=== PATIENT | male | born 1955 | race Caucasian/White ===

== ENCOUNTER 2017-10-05 10:15 | Outpatient (CLI) | payer BC ==
[~2017-10-05 10:15] MED LIST: Gadobenate Dimeglumine 529 MG/1 ML (20ML VIAL) ONE
--- NOTE | 2017-10-05 16:34 | MRI ---
MR OF THE ABDOMEN WITH AND WITHOUT CONTRAST: 10/05/17 INDICATION: Long history of cholecystectomy and hernia with right upper quadrant pain underlying the right ribs f or a year. COMPARISON: Prior MR of the abdomen dated 02/01/14. TECHNIQUE: Multiplanar and multisequence MR images were obtained in the abdomen with and without contrast utiliz ing 20 mL of Multihance. FINDINGS: The gallbladder is surgically absent. The common bile duct and main pancreatic duct are within normal limits. No definite intraluminal focal filling defect is evident. There are multiple small hepatic cysts. The largest within the medial left hepatic lobe is slightly i ntervally enlarged from the comparison exam now measuring up to 1.2 cm in size. There is interval enlargement of the right inferior pole renal cyst now measuring 4.6 cm where previo usly measured 3.2 cm. Small cyst involving the left mid kidney is stable. No free fluid or enlarged lymph nodes evident. The pancreas, spleen and adrenal glands are within normal limits. IMPRESSION: 1. Slight interval enlargement of the hepatic and right renal cysts. 2. No additional acute abnormality demonstrated. POS: RED
== END 2017-10-05 10:16 | disposition home or self-care (01) ==
LOC: SCSMRI 10:15
PROVIDERS: ATTEND Internal Medicine Gastroenterology
DX: K75.81 Nonalcoholic steatohepatitis (NASH) (principal); R10.11 Right upper quadrant pain; R16.0 Hepatomegaly, not elsewhere classified; N28.1 Cyst of kidney, acquired
CPT/HCPCS: 74183; 82565; A9579

== ENCOUNTER 2020-04-18 09:28 | Outpatient (CLI) | payer BC, OTHER ==
[2020-04-18 18:16] LABS: SARS-CoV-2 MS2 Positive; SARS-CoV-2 N Gene Negative; SARS-CoV-2 S Gene Negative; SARS-CoV-2 by NAA Not Detected (NotDetected); SARS-CoV-2 orf1ab Negative
== END 2020-04-18 09:29 | disposition home or self-care (01) ==
LOC: LABBT 09:28
PROVIDERS: ATTEND Ophthalmology Retina Specialist
DX: H43.391 Other vitreous opacities, right eye (principal); Z20.828 Contact with and (suspected) exposure to other viral communicable diseases
CPT/HCPCS: 87635; U0003

== ENCOUNTER 2020-04-22 05:54 | Day surgery (SDC) | payer BC ==
[2020-04-18 15:59] VITALS: BMI 28.7
[2020-04-22] MEDS ORDERED: Midazolam HCl 2 mg/2 ml Vial ONE (06:19)
[2020-04-22] MEDS ORDERED: Phenylephrine 2.5% Ophth Soln 5 ML BOT ONE (06:22)
[2020-04-22] MEDS ORDERED: Cyclopentolate 1% Opth Drop 2 ML BOT ONE (06:22)
[2020-04-22] MEDS ORDERED: EPINEPHrine 0.3 MG in Ophthalmic Irrigation Solution 500 ML IRR SCH (06:30)
--- NOTE | 2020-04-22 08:03 | OP ---
DATE OF PROCEDURE: 04/22/2020 PRINCIPAL PREOPERATIVE DIAGNOSIS: Vitreous opacities, right eye. POSTOPERATIVE DIAGNOSIS: Vitreous opacities, right eye. PROCEDURES PERFORMED: 1. 25-gauge pars plana vitrectomy, right eye. 2. Posterior capsular opacification clearing, right eye. ESTIMATED BLOOD LOSS: None. SPECIMENS REMOVED: None. COMPLICATIONS: None. ANESTHESIA: MAC with sub-Tenon's block. DESCRIPTION OF PROCEDURE: The patient was identified in the preoperative holding area, where the correct eye being the right eye was marked for surgery. The patient was taken to the operating room, where MAC anesthesia was induced. The right eye was prepped and draped in the usual sterile ophthalmic fashion for surgery. A wire-clip lid speculum was placed. An inferonasal conjunctival peritomy was fashioned with Remberto scissors for administration of sub-Tenon's block. The block consisted of 1:1 ratio of 4% lidocaine and 0.75% Marcaine. Total of 5 mL was administered. A standard 25-gauge pars plana vitrectomy platform was fashioned with trocars placed approximately 3.5 mm from the limbus. The infusion was noted to be within the vitreous cavity prior to being turned on to an infusion pressure of 30 mmHg. The light pipe and micro vitrector were introduced in the eye under visualization of BIOM viewing system. Significant amount of vitreous opacities identified. A careful core and peripheral shave vitrectomy were performed with the assistance of Kenalog and scleral depression. This allowed for significant improvement in the vitreous opacities identified. Following completion of vitrectomy, a 360-degree scleral depressed exam of the periphery was performed, which revealed no defects. The cannulas were sequentially removed and the superotemporal sclerotomy was sutured with 8-0 Vicryl suture. Following suturing, all sclerotomies were noted to be watertight. Subconjunctival Ancef and Kenalog were injected. The wire-clip lid speculum was removed followed by application of TobraDex ophthalmic ointment and a light patch and shield. The patient tolerated the procedure well and was taken to the outpatient recovery area in good condition. Job ID: [id number]
[2020-04-22] MEDS ORDERED: PROPOFOL 200 MG/20 ML VIAL ONE (09:46)
[2020-04-22] MEDS ORDERED: Maxitrol 0.1% Opth Oint 3.5 GM TUBE ONE (09:46)
[2020-04-22] MEDS ORDERED: Bupivacaine PF 0.75% SDV 10 ML ONE (09:46)
[2020-04-22] MEDS ORDERED: CEFAZOLIN 1 GM VIAL ONE (09:46)
[2020-04-22] MEDS ORDERED: Lidocaine 4% PF 5 ML AMP ONE (09:46)
[2020-04-22] MEDS ORDERED: Lidocaine 1% PF 5 ML VIAL ONE ×2 (09:46)
[2020-04-22] MEDS ORDERED: Triamcinolone 40 MG/ML VIAL ONE (09:46)
== END 2020-04-22 08:15 | disposition home or self-care (01) ==
LOC: SDC 05:54
PROVIDERS: ATTEND Ophthalmology Retina Specialist
PROC: 08943ZZ Drainage of Right Vitreous, Percutaneous Approach (ICD-10-PCS; principal; 2020-04-22)
DX: H43.391 Other vitreous opacities, right eye (principal); I10 Essential (primary) hypertension; E03.9 Hypothyroidism, unspecified; J45.909 Unspecified asthma, uncomplicated; M06.9 Rheumatoid arthritis, unspecified; Z79.899 Other long term (current) drug therapy; Z88.2 Allergy status to sulfonamides
CPT/HCPCS: J0171; J0690; J2001; J2250; J2704; J3301; J3490

== ENCOUNTER 2020-04-28 13:04 | Outpatient (CLI) | payer BC ==
--- NOTE | 2020-04-28 14:41 | RAD ---
CERVICAL SPINE: Date: 04/28/2020 Total of 8 views. Neutral, flexion, and extension views were obtained. INDICATION: Neck pain. Rheumatoid arthritis. FINDINGS: Cervical vertebra maintain height. There is loss of disc space at the C4-5 level. Slight posterolisth esis and posterior spondylosis at C4-5. Mild anterior spurring from the cervical vertebra. Evidence o f facet hypertrophy. Mild bilateral foraminal narrowing at C4-5. IMPRESSION: Evidence of moderate degenerative changes at C4-5 with disc narrowing, spondylosis, and uncinate hype rtrophy which produces foraminal stenosis. POS: AH
== END 2020-04-28 13:05 | disposition home or self-care (01) ==
LOC: SCSRAD 13:04
PROVIDERS: ATTEND Internal Medicine Rheumatology
DX: M54.2 Cervicalgia (principal); M47.812 Spondylosis without myelopathy or radiculopathy, cervical region; M48.02 Spinal stenosis, cervical region
CPT/HCPCS: 72052

== ENCOUNTER 2020-10-14 18:00 | Outpatient (CLI) | payer BC | END 2020-10-14 18:01 | disposition home or self-care (01) | LOC: SLEEPLAB 18:00 | PROVIDERS: ATTEND Family Medicine | DX: G47.33 Obstructive sleep apnea (adult) (pediatric) (principal); R53.83 Other fatigue; R06.83 Snoring; G47.00 Insomnia, unspecified; K21.9 Gastro-esophageal reflux disease without esophagitis; I49.9 Cardiac arrhythmia, unspecified; J45.909 Unspecified asthma, uncomplicated; I10 Essential (primary) hypertension; E66.9 Obesity, unspecified; Z68.29 Body mass index [BMI] 29.0-29.9, adult | CPT/HCPCS: 95806 ==

== ENCOUNTER 2022-05-24 09:45 | Outpatient (CLI) | payer BC | END 2022-05-24 09:46 | disposition home or self-care (01) | LOC: SCSRAD 09:45 | PROVIDERS: ATTEND Internal Medicine Rheumatology | DX: M25.551 Pain in right hip (principal); M54.6 Pain in thoracic spine | CPT/HCPCS: 72072 ==

== ENCOUNTER 2023-02-01 05:56 | Day surgery (SDC) | payer BC ==
[2023-01-31 12:07] VITALS: BMI 28.7
[~2023-02-01 05:56] MED LIST changes: +EPINEPHrine 0.3 MG in Ophthalmic Irrigation Solution 500 ML IRR SCH; -Gadobenate Dimeglumine 529 MG/1 ML (20ML VIAL) ONE
[2023-02-01] MEDS ORDERED: PHENYLephrine 2.5% Ophth Soln 15 ml Bottle ONE (06:22)
[2023-02-01] MEDS ORDERED: Cyclopentolate 1% Opth Drop 2 ML BOT ONE (06:22)
[2023-02-01] MEDS ORDERED: CEFAZOLIN 1 GM VIAL ONE ×2 (06:23→07:17)
[2023-02-01] MEDS ORDERED: Midazolam HCl 2 mg/2 ml Vial ONE (06:36)
[2023-02-01] MEDS ORDERED: fentaNYL 50 mcg/mL 1 mL Vial ONE (06:36)
[2023-02-01] MEDS ORDERED: PROPOFOL 20 ML ONE (06:36)
[2023-02-01] MEDS ORDERED: Maxitrol 0.1% Opth Oint 3.5 GM TUBE ONE (07:17)
[2023-02-01] MEDS ORDERED: Lidocaine 4% PF 5 ML AMP ONE (07:17)
[2023-02-01] MEDS ORDERED: Triamcinolone 40 MG/ML VIAL ONE (07:17)
[2023-02-01] MEDS ORDERED: Bupivacaine 0.75% 10 ML VIAL ONE (07:17)
[2023-02-01] MEDS ORDERED: Lidocaine 1% PF 5 ML VIAL ONE (07:17)
== END 2023-02-01 08:19 | disposition home or self-care (01) ==
LOC: SDC 05:56
PROVIDERS: ATTEND Ophthalmology Retina Specialist
PROC: 08T43ZZ Resection of Right Vitreous, Percutaneous Approach (ICD-10-PCS; principal; 2023-02-01)
DX: H43.392 Other vitreous opacities, left eye (principal)
CPT/HCPCS: J0171; J0690; J2250; J2704; J3010; J3301; J3490